=== PATIENT | male | born 1970 | race Caucasian/White ===

== ENCOUNTER 2023-09-06 12:54 | Observation (INO) | payer BC ==
[~2023-09-06] VITALS: Ht 175.3 cm; Wt 56.0 kg
[2023-09-07 10:35] VITALS: BP 127/72
== END 2023-09-07 11:25 | disposition home or self-care (01) ==
LOC: ER 12:54 → ICUE 12:55 → ER 15:32 → ICUE 15:32
PROVIDERS: ADMIT Family Medicine
DX: E10.10 Type 1 diabetes mellitus with ketoacidosis without coma (principal); E78.5 Hyperlipidemia, unspecified; E10.40 Type 1 diabetes mellitus with diabetic neuropathy, unspecified; Z79.4 Long term (current) use of insulin; Z79.899 Other long term (current) drug therapy

== ENCOUNTER 2023-10-22 08:50 | Inpatient (IN) | payer BC ==
[~2023-10-22] VITALS: Ht 175.3 cm; Wt 57.6 kg
[2023-10-22] VITALS (14 sets, daily range): BP systolic 101–132; BP diastolic 62–85
[~2023-10-22 08:50] MED LIST: CLON1 PO; HUMALOG JU100 UNIT/2 SC; PREG50 PO; Robaxin750 MG PO
[2023-10-22] MEDS ORDERED: Ondansetron HCl 2 MG / ML 2ML Vial IV ONE (09:50)
[2023-10-22 10:03] LABS: BASOPHILS ABSOLUTE AUTO 0.08 K/mm3 (0.00-0.23); BASOPHILS PERCENT AUTO 1 % (0-2); EOSINOPHILS ABSOLUTE AUTO 0.01 K/mm3 (0.00-0.68); EOSINOPHILS PERCENT AUTO 0 % (0-6); Hematocrit 42.9 % (37.0-53.0); Hemoglobin 14.7 g/dL (13.5-17.5); IMMATURE GRAN ABSOLUTE AUTO 0.11 K/mm3 (0.00-0.10); IMMATURE GRAN PERCENT AUTO 1 % (0-1); LYMPHOCYTES ABSOLUTE AUTO 0.93 K/mm3 (0.84-5.20); LYMPHOCYTES PERCENT AUTO 5 % (21-46); MONOCYTES ABSOLUTE AUTO 0.62 K/mm3 (0.16-1.47); MONOCYTES PERCENT AUTO 4 % (4-13); Mean Corpuscular HGB 30.8 pg (26.0-34.0); Mean Corpuscular HGB Conc 34.3 g/dL (31.5-36.5); Mean Corpuscular Volume 90 fL (80-100); Mean Platelet Volume 10.6 fL (9.1-12.4); NEUTROPHILS PERCENT AUTO 90 % (41-73); Platelet Count 211 K/mm3 (150-400); RDW Coefficient Variation 13.8 % (11.7-14.2); RDW Standard Deviation 45.4 fL (35.1-46.3); Red Blood Cell Count 4.78 M/mm3 (4.30-5.90); White Blood Cell Count 17.45 K/mm3 (4.00-11.30)
[2023-10-22 10:25] LABS: Albumin, Blood 3.7 g/dL (3.4-5.0); Beta-hydroxybutyrate 31.5 mg/dL (0.2-2.8); Bun/Creatinine Ratio 34.6 (12.0-20.0); Calcium, Blood 8.9 mg/dL (8.5-10.1); Creatinine, Blood 0.69 mg/dL (0.60-1.20); Globulin, Blood 3.6 g/dL (2.2-4.0); Potassium, Blood 5.8 mmol/L (3.5-5.5); Total Protein, Blood 7.3 g/dL (6.4-8.2)
[2023-10-22] MEDS ORDERED: Insulin Human Regular 100 UNIT in NS 100 ML IV SCH (10:40)
[2023-10-22 11:01] LABS: Base Excess Venous -8.9 mmol/L; Bicarbonate Venous 18.6 mmol/L (24.0-30.0); PCO2 Venous 26.9 mmHg (38-42); pH Blood Venous 7.39 (7.34-7.37)
[2023-10-22] MEDS ORDERED: Ondansetron 4 MG TAB PO PRN (11:20)
[2023-10-22] MEDS ORDERED: Acetaminophen 325 MG TABLET PO PRN (11:20)
[2023-10-22] MEDS ORDERED: NS 1,000 ML IV SCH (11:25)
[2023-10-22] MEDS ORDERED: Methocarbamol 500 MG Tab PO PRN (11:35)
[2023-10-22] MEDS ORDERED: NS 1,000 ML IV ONE (11:42)
[2023-10-22 12:21] LABS: Albumin, Blood 3.8 g/dL (3.4-5.0); Anion Gap 15 mmol/L (3-11); Blood Urea Nitrogen 26 mg/dL (8-24); Bun/Creatinine Ratio 32.7 (12.0-20.0); CO2, Blood 22 mmol/L (21-32); Calcium, Blood 9.3 mg/dL (8.5-10.1); Chloride, Blood 104 mmol/L (98-108); Creatinine, Blood 0.79 mg/dL (0.60-1.20); Glomerular Filtration Rate 106 (60-); Glucose, Blood 432 mg/dL (70-99); Phosphorus, Blood 3.3 mg/dL (2.5-4.9); Potassium, Blood 5.7 mmol/L (3.5-5.5); Sodium, Blood 135 mmol/L (136-145)
[2023-10-22 14:26] LABS: Albumin, Blood 3.4 g/dL (3.4-5.0); Anion Gap 14 mmol/L (3-11); Blood Urea Nitrogen 26 mg/dL (8-24); Bun/Creatinine Ratio 32.8 (12.0-20.0); CO2, Blood 25 mmol/L (21-32); Calcium, Blood 8.5 mg/dL (8.5-10.1); Chloride, Blood 104 mmol/L (98-108); Creatinine, Blood 0.79 mg/dL (0.60-1.20); Glomerular Filtration Rate 106 (60-); Glucose, Blood 329 mg/dL (70-99); Phosphorus, Blood 2.2 mg/dL (2.5-4.9); Potassium, Blood 3.9 mmol/L (3.5-5.5); Sodium, Blood 139 mmol/L (136-145)
[2023-10-22] MEDS ORDERED: D5W-1/2NS 1,000 ML IV SCH (15:10)
[2023-10-22] MEDS ORDERED: Potassium Chl 20MEQ/Water100ML 100 ML IV STA (16:06)
[2023-10-22] MEDS ORDERED: NS 250 ML IV PRN (16:25)
--- NOTE | 2023-10-22 17:48 | NUR ---
ARRIVAL TO ICU/SHIFT SUMMARY PT ADMITTED TO ICU FROM ED FOR DKA AT 1255. PT A&OX 4. FOLLOWS COMMANDS. ABLE TO MAKE NEEDS KNOWN. DENIES N/V OR ABD PAIN. STATES HE TRIED TO CONTROL HIS BLOOD SUGAR AT HOME UNSUCCESSFULLY, NO KNOWN PRECIPITATING EVENTS OR ILLNESS. PT HAS INSULIN PUMP AND DEXICOM. INSULIN PUMP TURNED OFF VIA FOSTER BY PT. INSULIN GTT INFUSING, CHANGED FLUIDS TO D5 1/2 NS AT 150 ML/HR. KCL BEING REPLACED. PIV X 2. ST, RATE 100-110'S. BP STABLE. PLAN FOR LABS AT 1800, IF CORRECTED, PER DR LANDERS, PT CAN RESUME HOME INSULIN REGIMEN VIA PUMP. WILL CONTINUE PLAN OF CARE UNTIL REPORT TO ONCOMING NURSE.
[2023-10-22 18:59] LABS: Albumin, Blood 3.2 g/dL (3.4-5.0); Anion Gap 9 mmol/L (3-11); Blood Urea Nitrogen 23 mg/dL (8-24); Bun/Creatinine Ratio 33.7 (12.0-20.0); CO2, Blood 27 mmol/L (21-32); Calcium, Blood 8.2 mg/dL (8.5-10.1); Chloride, Blood 106 mmol/L (98-108); Creatinine, Blood 0.68 mg/dL (0.60-1.20); Glomerular Filtration Rate 111 (60-); Glucose, Blood 288 mg/dL (70-99); Phosphorus, Blood 1.9 mg/dL (2.5-4.9); Potassium, Blood 4.1 mmol/L (3.5-5.5); Sodium, Blood 138 mmol/L (136-145)
[2023-10-22] MEDS ORDERED: Sodium Phosphate 15 MM in Dextrose 5% 250 ML IV ONE (19:20)
--- NOTE | 2023-10-22 19:23 | NUR ---
ASSUMED CARE OF PT AT 1900. REPORT RECEIVED AT BEDSIDE. PT PRESENTS IN ROOM. INDEPENDENT. VOIDED QUANTITIY SUFFIENT. LABS HAVE BEEN RECEIVED. NUMBERS HAVE BEEN CORRECTED. CALL TO [facility] HOSPITALIST. ORDERS RECEIVED. PT HAS RESTARTED ON HIS INSULIN PUMP. WILL DISCONTINUE INSULIN DRIP POST 15 MINUTES FROM RESTART OF HIS INSULIN PUMP. WILL REVIEW CHART AND PLAN OF CARE FOR THIS PT.
[2023-10-22] MEDS ORDERED: ClonazePAM 1 MG Tab PO SCH (21:00)
[2023-10-22] MEDS ORDERED: Insulin NPH 100 Unit / ML 10ML Vial SC SCH (21:15)
[2023-10-22] MEDS ORDERED: Insulin Human Lispro 100 Units/ML 3ML Syringe SC SCH (21:15)
--- NOTE | 2023-10-22 22:45 | NUR ---
OF NOTE: PT WAS NOT ABLE TO GET HIS INSULIN PUMP WORKING. HE STATES THAT THE INSULIN WAS REFILLED TOO LONG AGO FOR HIS SYSTEM TO WORK. DID CALL HOSPITALISTSTEVEN TO UPDATE. NEW ORDERS RECEIVED. WILL DO SPOT CHECK NEAR 0200 TO SEE IF CURRENT TREATMENT AFFECTIVE. PT TO HAVE HIS INSULIN PUMP REFILLED WHEN HE GETS HOME. PT VERBALIZES GOOD UNDERSTANDING OF HIS DEXCOM, AND HIS INSULIN PUMP. WILL CONTINUE TO MONITOR PT.
[2023-10-23] VITALS (10 sets, daily range): BP systolic 103–132; BP diastolic 67–91
[2023-10-23 03:52] LABS: BASOPHILS ABSOLUTE AUTO 0.07 K/mm3 (0.00-0.23); BASOPHILS PERCENT AUTO 1 % (0-2); EOSINOPHILS ABSOLUTE AUTO 0.11 K/mm3 (0.00-0.68); EOSINOPHILS PERCENT AUTO 1 % (0-6); Hematocrit 37.4 % (37.0-53.0); IMMATURE GRAN PERCENT AUTO 1 % (0-1); LYMPHOCYTES ABSOLUTE AUTO 2.27 K/mm3 (0.84-5.20); LYMPHOCYTES PERCENT AUTO 17 % (21-46); MONOCYTES ABSOLUTE AUTO 0.99 K/mm3 (0.16-1.47); MONOCYTES PERCENT AUTO 7 % (4-13); Mean Corpuscular HGB 30.7 pg (26.0-34.0); Mean Corpuscular HGB Conc 34.8 g/dL (31.5-36.5); Mean Corpuscular Volume 88 fL (80-100); NEUTROPHILS ABSOLUTE AUTO 10.05 K/mm3 (1.96-9.15); NEUTROPHILS PERCENT AUTO 74 % (41-73); Platelet Count 187 K/mm3 (150-400); RDW Coefficient Variation 14.2 % (11.7-14.2); RDW Standard Deviation 45.8 fL (35.1-46.3); Red Blood Cell Count 4.23 M/mm3 (4.30-5.90); White Blood Cell Count 13.59 K/mm3 (4.00-11.30)
[2023-10-23 04:18] LABS: Albumin, Blood 3.1 g/dL (3.4-5.0); Albumin/Globulin Ratio 1.1 (0.8-1.8); Bilirubin, Total 0.7 mg/dL (0.1-1.0); Bun/Creatinine Ratio 31.7 (12.0-20.0); Calcium, Blood 7.9 mg/dL (8.5-10.1); Creatinine, Blood 0.66 mg/dL (0.60-1.20); Globulin, Blood 2.9 g/dL (2.2-4.0); Potassium, Blood 4.1 mmol/L (3.5-5.5)
--- NOTE | 2023-10-23 06:45 | NUR ---
PT HAS BEEN ABLE TO REST THROUGHOUT THE NIGHT. NO COMPLAINTS. HAS VOIDED Q.S. INDEPENDENT IN ROOM AND IN BED. LABS DONE, AND PT REMAINS OUT OF DKA. WILL CONTINUE TO MONITOR, AND WILL REPORT OFF TO ONCOMING RN.
--- NOTE | 2023-10-23 07:45 | NUR ---
ASSUMED CARE BEDSIDE REPORT FROM OLMAN LANG AT 0700. PT RESTING IN BED. A&OX 4. FOLLOWS COMMANDS. DENIES NEEDS OR COMPLAINTS. ABD ROUND, SOFT, NON TENDER, BT X 4. SR, RATE 90'S. BP STABLE. INDEPENDENT IN ROOM. TOLERATING PO WELL. PIV X 2. WILL CONTINUE PLAN OF CARE.
[2023-10-23] MEDS ORDERED: Enoxaparin 40 MG/0.4 ML SYR SC SCH (09:00)
--- NOTE | 2023-10-23 11:25 | NUR ---
DISCHARGE INSTRUCTIONS REVIEWED c PT, VERBALIZED UNDERSTANDING. F/U APPT c PCP AND STORE WORKER MADE. QUESTIONS ANSWERED. OTD NAD.
== END 2023-10-23 10:45 | disposition home or self-care (01) | DRG 919 ==
LOC: ER 08:50 → ICUE 11:19
PROVIDERS: Emergency Medicine; ADMIT Family Medicine
DX: T85.694A Other mechanical complication of insulin pump, initial encounter (principal); E10.10 Type 1 diabetes mellitus with ketoacidosis without coma; F17.210 Nicotine dependence, cigarettes, uncomplicated; F12.90 Cannabis use, unspecified, uncomplicated; E10.40 Type 1 diabetes mellitus with diabetic neuropathy, unspecified; F41.9 Anxiety disorder, unspecified; F32.A Depression, unspecified; Y83.8 Other surgical procedures as the cause of abnormal reaction of the patient, or of later complication, without mention of misadventure at the time of the procedure; Z79.899 Other long term (current) drug therapy; Z79.4 Long term (current) use of insulin
CPT/HCPCS: 36415; 80053; 80069; 82010; 82803; 82947; 83690; 85025; 96374; 99285-25; A9270; J1650; J1815; J2405; J3480; J7030; J7042; J7050; J7060

== ENCOUNTER 2024-07-08 06:12 | Day surgery (SDC) | payer BC ==
[~2024-07-08] VITALS: Ht 175.3 cm; Wt 62.0 kg
[~2024-07-08 06:12] MED LIST changes: +Balanced Salt Epinephrine Irrigation Solution 500 mL IR SCH; +Lidocaine HCl/Pf 1% 5 ML VIAL XX SCH; +Moxifloxacin HCL 0.5 MG/0.1 ML 0.4MLSYR LEFTEYE SCH; +PHENYLEPHRINE\\TROPICAMIDE\\TETRACAINE OPHTHALMIC DILATING SOLN LEFTEYE PRN; +Povidone-Iodine 450 DROP/30 ML Solution LEFTEYE SCH; +Povidone-Iodine 450 DROP/30 ML Solution ONE; +Tetracaine HCl/Pf 0.5% Opth Soln 4 ml ONE; +Triamcinolone Inj Susp 40 MG / ML 1ML Vial INJ SCH; +Tropicamide 1% Opth Soln 15 ML BTL ONE
[2024-07-08] MEDS ORDERED: VARENICLINE TART1 M2 PO (06:31)
[2024-07-08] MEDS ORDERED: PREG200 PO (06:32)
[2024-07-08] MEDS ORDERED: DEXCOM G7 SENS1 EACH MC (06:32)
[2024-07-08] MEDS ORDERED: Triamcinolone Inj Susp 40 MG / ML 1ML Vial ONE (06:44)
[2024-07-08] MEDS ORDERED: Lidocaine HCl/Pf 1% 5 ML VIAL ONE (06:45)
[2024-07-08] MEDS ORDERED: FentaNYL Citrate 50 MCG/ML 2 ML Injection ONE (07:24)
[2024-07-08] MEDS ORDERED: Midazolam HCl 1MG / ML 2ML Vial ONE (07:24)
[2024-07-08 07:55] VITALS: BP 117/89
--- NOTE | 2024-07-08 08:02 | NUR ---
07/08/24 0802 BRUCE SALINAS AT BEDSIDE.
[2024-07-08] MEDS ORDERED: Acetaminophen 500 MG Tab ONE (08:10)
== END 2024-07-08 08:15 | disposition home or self-care (01) ==
LOC: ORSCSDS 06:12
PROVIDERS: Ophthalmology
PROC: 08RK3JZ Replacement of Left Lens with Synthetic Substitute, Percutaneous Approach (ICD-10-PCS; principal; 2024-07-08 07:30)
DX: E10.36 Type 1 diabetes mellitus with diabetic cataract (principal); H25.812 Combined forms of age-related cataract, left eye; F17.210 Nicotine dependence, cigarettes, uncomplicated; Z79.4 Long term (current) use of insulin; Z79.899 Other long term (current) drug therapy
CPT/HCPCS: 82947; A9270; J2003; J2250; J3010; J3301; V2632